=== PATIENT | female | born 1960 | race Two or more races ===

== ENCOUNTER → 2017-12-18 | Emergency (ER) | payer OTHER | END | disposition left against medical advice (07) | LOC: ER 23:39 | DX: Z53.20 Procedure and treatment not carried out because of patient's decision for unspecified reasons (principal) ==

== ENCOUNTER 2021-12-23 07:26 | Outpatient (CLI) | payer OTHER | END 2021-12-23 07:27 | disposition home or self-care (01) | LOC: NUCLEAR 07:26 | PROVIDERS: ATTEND Internal Medicine | DX: I20.9 Angina pectoris, unspecified (principal) | CPT/HCPCS: 78452; 93017; A9500 ==

== ENCOUNTER → 2022-04-02 | Emergency (ER) | payer OTHER ==
[~2022-04-02] VITALS: Ht 160 cm; Wt 77.6 kg
[~2022-04-02] MED LIST: ANTIVERT25 M2 PO; GLIPIZIDE XL2.5 MG; GLUMETZA500 MG; LASIX20 MG PO; SIMVASTATIN5 MG
== END | disposition home or self-care (01) ==
LOC: ER 09:15
DX: R10.31 Right lower quadrant pain (principal); E11.9 Type 2 diabetes mellitus without complications; Z79.84 Long term (current) use of oral hypoglycemic drugs; I10 Essential (primary) hypertension; Z91.013 Allergy to seafood

== ENCOUNTER 2022-05-19 16:10 | Emergency (ER) | payer OTHER ==
[~2022-05-19] VITALS: Ht 160 cm; Wt 76.7 kg
== END 2022-05-19 20:35 | disposition home or self-care (01) ==
LOC: ER 16:10
DX: B34.9 Viral infection, unspecified (principal); E11.9 Type 2 diabetes mellitus without complications; Z79.84 Long term (current) use of oral hypoglycemic drugs; Z91.013 Allergy to seafood; Z20.822 Contact with and (suspected) exposure to COVID-19

== ENCOUNTER 2023-04-30 17:51 | Emergency (ER) | payer OTHER ==
[~2023-04-30] VITALS: Ht 160 cm; Wt 73.9 kg
[2023-04-30] MEDS ORDERED: LANTUS SOL100 UNIT/1 SQ (18:17)
[2023-04-30] MEDS ORDERED: CRESTOR5 MG PO (18:17)
[2023-04-30] MEDS ORDERED: GLIMEPIRIDE4 MG (18:17)
== END 2023-04-30 20:57 | disposition home or self-care (01) ==
LOC: ER 17:51
DX: J06.9 Acute upper respiratory infection, unspecified (principal); Z91.013 Allergy to seafood